=== PATIENT | male | born 1985 | race African-American/Black ===

== ENCOUNTER 2016-08-06 22:16 | Emergency (ER) | payer OTHER ==
[2016-08-06 22:24] VITALS: BP 158/72; PULSE 65; TEMP 98.6; BMI 40.4
[2016-08-06] MEDS ORDERED: BACITRACIN 30 GM TUBE TOPICAL OINTMENT TP ONE (23:06)
[2016-08-06] MEDS ORDERED: TETANUS AND DIPHTHERIA TOXOID 0.5 ML DISP.SYRIN IM ONE (23:07)
[2016-08-06] MEDS ORDERED: BACITRACIN 0.9 GM PACKET ONE (23:10)
[2016-08-06] MEDS ORDERED: BACITRACIN 30 GM TUBE TOPICAL OINTMENT ONE (23:19)
--- NOTE | 2016-08-06 23:28 | PDOC ---
History of Present Illness - General Chief Complaint: Laceration Stated Complaint: LACERATION TO HEAD Time Seen by Provider: 08/06/16 22:34 History Source: Patient Exam Limitations: No Limitations - History of Present Illness Initial Comments: 08/06/16 23:23 31yo Male patient presents to ED c/o laceration to scalp. Patient states he was shopping in [employer] when incident occurred. Patient was walking down isle where metal shelf was "sticking out," which he did not see and banged his head causing laceration to right scalp. Reports tetanus not up to date. Denies any other complaints at this time. Timing/Duration: reports: just prior to arrival Severity: Yes: mild Location: reports: scalp Respiratory Risk Factors: denies: no cause identified, exposure to illness, exposure to allergen, foods, insect bite, insect sting, medications, pollen, soaps, other Modifying Factors: worse with: antihistamine, calamine lotion, prednisone, scratching, topical steriods, other Associated Symptoms: denies: denies symptoms, blisters, change in skin texture, edema, fever, flushing, headache, hives, jaundice, malaise, nasal congestion, numbness, pallor, paresthesia, petechiae, rash, sore throat, swelling/mass/lumps , tingling, other Past History - Travel Traveled outside of the country in the last 30 days: No Close contact w/someone who was outside of country & ill: No - Past Medical History Allergies/Adverse Reactions: Allergies Allergy/AdvReac Type Severity Reaction Status Date / Time No Known Allergies Allergy Verified 08/06/16 22:18 Asthma: Yes - Immunization History Immunization Up to Date: Yes - Psycho/Social/Smoking Cessation Hx Suicidal Ideation: No Smoking History: Never smoked Information on smoking cessation initiated: No Hx Alcohol Use: No Drug/Substance Use Hx: No Substance Use Type: None Review of Systems - Review of Systems Able to Perform ROS?: Yes Is the patient limited Filipino proficient: No Constitutional: No: Chills, Fever Respiratory: No: Cough, Orthopnea, Shortness of Breath, Stridor, Wheezing Cardiac (ROS): No: Chest Pain, Edema, Lightheadedness, Palpitations, Syncope, Chest Tightness ABD/GI: No: Diarrhea, Nausea, Vomiting Integumentary: Yes: Other (Laceration to Scalp) All Other Systems: Reviewed and Negative *Physical Exam - Vital Signs Last Vital Signs Temp Pulse Resp BP Pulse Ox 98.6 F 65 20 158/72 99 08/06/16 22:18 08/06/16 22:18 08/06/16 22:18 08/06/16 22:18 08/06/16 22:18 - Physical Exam General Appearance: Yes: Nourished, Appropriately Dressed. No: Apparent Distress, Mild Distress, Moderate Distress, Severe Distress HEENT: positive: EOMI, JAYDA, Normal ENT Inspection, Normal Voice, Symmetrical, TMs Normal, Pharynx Normal. negative: Pharyngeal Erythema, Tonsillar Exudate, Tonsillar Erythema, TM Bulging, TM Dull, TM Erythema Neck: positive: Trachea midline, Normal Thyroid, Supple. negative: Stridor, Lymphadenopathy (R), Lymphadenopathy (L) Respiratory/Chest: positive: Lungs Clear, Normal Breath Sounds. negative: Respiratory Distress, Accessory Muscle Use, Labored Respiration Cardiovascular: positive: Regular Rhythm, Regular Rate. negative: Edema, JVD Musculoskeletal: positive: Normal Inspection. negative: CVA Tenderness Extremity: positive: Normal Capillary Refill, Normal Inspection, Normal Range of Motion. negative: Swelling, Erythema, Inflammation Integumentary: positive: Normal Color, Dry, Warm, Other (Superficial 2cm Laceration to right scalp. Bleeding controlled.) Neurologic: positive: epic willow analyst II-XII NML intact, Fully Oriented, Alert, Normal Mood/ Affect, Normal Response, Motor Strength 5/5 ED Treatment Course - Medications Given in the ED: ED Medications Discontinued Medications Generic Name Dose Route Start Last Admin Trade Name Javierq PRN Reason Stop Dose Admin Bacitracin 1 applic 08/06/16 23:06 08/06/16 23:14 Bacitracin - TP 08/06/16 23:07 1 applic ONCE ONE Administration Tetanus/Diphtheria Toxoids Adsorbed 0.5 ml 08/06/16 23:07 08/06/16 23:13 Decavac - IM 08/06/16 23:08 0.5 ml .ONCE ONE Administration *DC/Admit/Observation/Transfer Diagnosis at time of Disposition: Laceration of skin of scalp Qualifiers: Encounter type: initial encounter Qualified Code(s): S01.01XA - Laceration without foreign body of scalp, initial encounter - Discharge Dispostion Disposition: HOME Condition at time of disposition: Stable Admit: No - Patient Instructions Printed Discharge Instructions: DI for Closed Head Injury Additional Instructions: FOLLOW UP WITH YOUR DOCTOR NEEDED. CONTINUE TO APPLY BACITRACIN TO SCALP TWICE DAILY AFTER WASHING WITH SOAP AND WATER. RETURN IF ANY CONCERN FOR FURTHER EVALUATION. Print Language: INDONESIAN
== END 2016-08-06 23:36 | disposition home or self-care (01) ==
LOC: JER 22:16
PROC: 3E0234Z Introduction of Serum, Toxoid and Vaccine into Muscle, Percutaneous Approach (ICD-10-PCS; principal; 2016-08-06)
DX: S01.01XA Laceration without foreign body of scalp, initial encounter (principal); W22.8XXA Striking against or struck by other objects, initial encounter; Y93.89 Activity, other specified; Y92.512 Supermarket, store or market as the place of occurrence of the external cause; Y99.8 Other external cause status
CPT/HCPCS: 99281-25

== ENCOUNTER 2017-12-25 12:42 | Emergency (ER) | payer SELFPAY ==
[2017-12-25 13:05] VITALS: BMI 39.7
--- NOTE | 2017-12-25 14:46 | PDOC ---
History of Present Illness - General Chief Complaint: Pain Stated Complaint: CHEST PAIN, HEADACHE - History of Present Illness Initial Comments: Dangelo Pedro is a 32yo man with a PMH of asthma and migraines who presents with pleuritic left chest vs LUQ pain that started overnight. He reports that he first noticed the pain about 1:30am last night. He initially assumed that the pain was a muscle ache and went to sleep. However, this morning the pain had not improved at all. It is a sharp, non-radiating pain about 7/10 in intensity. The pain worsens with movement or breathing. Mr Pedro denies any associated nausea, vomiting, SOB, diaphoresis, or fever/ chills. He does not remember any particular injury but does report reaching up for files on a high shelf at work yesterday. He has not had any unusual lifting or new exercise program. He notes that the felt his heart racing initially, but he does admit to drinking espresso twice yesterday in addition to coffee at 10pm. He attributed feeling his heart race to drinking more caffeine yesterday than normal. That symptom had resolved by the time he woke this morning. Mr Pedro has otherwise been healthy lately and does not complain of any other symptoms. Past History - Past Medical History Allergies/Adverse Reactions: Allergies Allergy/AdvReac Type Severity Reaction Status Date / Time No Known Allergies Allergy Verified 12/25/17 13:05 Home Medications: Ambulatory Orders Acetaminophen/Caffeine/Butalb [Fioricet -] 1 tablet PO DAILY 12/25/17 Albuterol Sulfate Inhaler - [Ventolin Hfa Inhaler -] 1 - 2 inh PO PRN PRN Budesonide/Formeterol Fumarate [SYMBICORT 80/4.5mcg -] 1 puff IH PRN PRN Asthma: Yes COPD: No - Immunization History Immunization Up to Date: Yes - Suicide/Smoking/Psychosocial Hx Smoking History: Never smoked Hx Alcohol Use: No Drug/Substance Use Hx: No Substance Use Type: None Review of Systems - Review of Systems Comments:: General: No fevers, no chills, no weight or appetite change, no malaise HEENT: No changes in vision, no changes in hearing, no congestion, no sore throat CV: No chest pain, no palpitations, no LE edema Pulm: No unusual SOB, no cough, no wheezing. +h/o asthma GI: No nausea or vomiting, no change in bowel habits, no melena : No frequency, no urgency, no dysuria Musc: No back pain, no joint swelling, no recent injury Skin: No rash, no lesions, no erythema Endo: No excessive thirst, no heat/cold intolerance Heme: No unusual bruising or bleeding, no swollen glands Neuro: No syncope, no numbness/tingling, no focal weakness Vasc: No claudication Psych: No recent change in mood, no SI or HI *Physical Exam - Vital Signs Last Vital Signs Temp Pulse Resp BP Pulse Ox 99.4 F 76 18 137/73 100 12/25/17 13:02 12/25/17 13:02 12/25/17 13:02 12/25/17 13:02 12/25/17 13:02 - Physical Exam Comments: General: Comfortable, no acute distress HEENT: PERRL, EOMI, MMM, voice normal, normal neck ROM, no LAD Cards: RRR, no murmur appreciated Pulm: Comfortable on room air, clear to auscultation bilaterally. Very minimal TTP over lateral 11th and 12th left rib Abd: Soft, nontender, nondistended : No CVA tenderness Ext: Atraumatic. No LE edema. ROM intact. Strength 5/5 and equal bilaterally Vasc: Extremities WWP. Palpable radial and pedal pulses bilaterally Neuro: A&Ox3, CN grossly intact, normal speech, motor/sensory grossly intact and symmetric Psych: Mood appropriate to situation ED Treatment Course - LABORATORY CBC & Chemistry Diagram: 12/25/17 16:30 12/25/17 18:30 Medical Decision Making - Medical Decision Making 12/25/17 15:32 Dangelo Pedro is a 32yo with a history of asthma and migraines who presents to the ED with pleuritic pain and TTP over the left lower ribs since last night. He has no associated symptoms. - Very low risk of ACS. EKG was completed in triage, normal sinus. No indication to check troponin at this time - Given h/o asthma, may be difficulty to distingish respiratory infection from normal asthma symptoms. CXR ordered to evaluate for focal pathology - Most likely muscle pain vs costochondritis given pleuritic nature, TTP, and h/ o reaching to high shelves yesterday. Will give ibuprofen and methocarbamol for symptoms. 12/25/17 16:03 - On reassessment, now complaining of worsening chest/abd pain, 9/10 headache. The headache is more severe than his normal migraines - CBC, CMP, lipase, mag, phos ordered - Will give 1L normal saline and reglan in addition to previous ibuprofen and methocarbamol for headache. 12/25/17 18:27 - Reports pain somewhat improved following medications - CBC unremarkable. Remainder of labs hemolized, results unavailable. Given improvement in symptoms, normal EKG and CXR, normal CBC will not redraw chemistries. - Will discharge home if Mr Pedro agrees. Will discuss return precautions and follow up. *DC/Admit/Observation/Transfer Diagnosis at time of Disposition: Atypical chest pain - Discharge Dispostion Disposition: HOME Condition at time of disposition: Good Decision to Admit order: No - Referrals Referrals: Beatriz Noble MD [Primary Care Provider] - - Patient Instructions Printed Discharge Instructions: DI for Atypical Chest Pain Additional Instructions: Discharge Instructiosn: - You were seen in the ED for chest pain - You had an EKG, chest xray, and blood tests completed. There was nothing abnormal or concerning found - Your pain was most likely due to musculoskeletal pain. You were given an anti- inflammatory medication and muscle relaxant with improvement in your symptoms. - Continue to use ibuprofen (Motrin, Advil) or acetaminophen (Tylenol) as needed for pain. You can consider using heat or cold packs to help with your symptoms - Avoid strenuous activity until your pain improves, but continue gentle stretching and arm movements, Gradually increase these daily - Follow up with your primary physician within the next week to ensure that you are recovering appropriately - Seek immediate medical care if you have severe chest pain along with shortness of breath, sweating, nausea/vomiting or if you have these symptoms along with a fever to 101F that does not respond to medications such as tylenol or motrin at home. - Post Discharge Activity Forms/Work/School Notes: Back to Work
--- NOTE | 2017-12-25 15:18 | PDOC ---
Attending Attestation - [facility] HPI: 12/25/17 16:43 The patient is a 32-year-old male with a past medical history of asthma and migraine presents to the emergency department with chest pain. The patient reports around 1:30 am, an acute onset of L sided chest pain presented, localized along the intercostal space of the ribs. The patient reports he went back to sleep, but today morning patient reports having difficulty ambulating out of bed. The patient reports the pain is pleuritic in character, thats aggravated by coughing or laughing. The patient reports associated symptoms of heart racing, muscle twitching, and nausea. The patient reports a history of a headache, that was intensified today, 9/10 in severity. The patient doesnt recall doing any heavy lifting, reports reaching up to bring down a file. The patient states he went to PCP, who sent him to the ER. Denies vomiting, diarrhea , constipation, fever, chills, cough or shortness of breath. Allergies: NKA Social history: None reported Surgical history: None reported PCP: Beatriz Zacarias MD - Physicial Exam PE: 12/25/17 16:13 GENERAL: The patient is in no acute distress. HEAD: Normal with no signs of trauma. EYES: PERRLA, EOMI, sclera anicteric, conjunctiva clear. ENT: Ears normal, nares patent, oropharynx clear without exudates. Moist mucous membranes. NECK: Normal range of motion, supple without lymphadenopathy, JVD, or masses. LUNGS: Breath sounds equal, clear to auscultation bilaterally. No wheezes, and no crackles. HEART:Regular rate and rhythm, normal S1 and S2 without murmur, rub or gallop. ABDOMEN: Soft, nontender, normoactive bowel sounds. No guarding, no rebound. No masses palpable. EXTREMITIES: Normal range of motion, no edema. No clubbing or cyanosis. No erythema, or tenderness. NEUROLOGICAL: Cranial nerves II through XII grossly intact. Normal speech. No focal neurological deficits. MUSCULOSKELETAL: (+) Tenderness to the L. lower ribs. Rest of the musculoskeletal: Back non-tender to palpation, no CVA tenderness SKIN: Warm, Dry, normal turgor, no rashes or lesions noted. - Medical Decision Making 12/25/17 16:13 Documentation prepared by Norma Flannery, acting as medical case manager for Sana Tejada MD <Norma Flannery - Last Filed: 12/25/17 16:43> - Resident Resident Name: Catherine Washington - ED Attending Attestation I have performed the following: I have examined & evaluated the patient, The case was reviewed & discussed with the resident, I agree w/resident's findings & plan, Exceptions are as noted - Medical Decision Making 32 yo M presenting with a complaint of left sided chest pain which worsens with movement, deep breath , palpation of the area No rash No cardiac risk factors No recent travel Low risk wells, Perc neg Labs pending prior to sign out CXR does not demonstrate Pneumothorax or pleural effusion Pt given pain medications with improvement in symptoms but not complete resolution Pt signed out to Dr Fox, pending labs Clinical Impression: likely musculoskeletal chest pain, initial presentation <Sana Tejada - Last Filed: 12/28/17 08:51>
[2017-12-25] MEDS ORDERED: METHOCARBAMOL 500 MG TABLET PO ONE (15:22)
[2017-12-25] MEDS ORDERED: IBUPROFEN 400 MG TABLET (FP) PO ONE ×2 (15:22→16:37)
[2017-12-25] MEDS ORDERED: SODIUM CHLORIDE 0.9% 500 ML INFUS.BAG IV ONE (16:02)
[2017-12-25] MEDS ORDERED: METOCLOPRAMIDE HCL INJECTION 10 MG/2 ML VIAL IVPUSH ONE (16:12)
[2017-12-25] MEDS ORDERED: METHOCARBAMOL 500 MG TABLET ONE (16:36)
[2017-12-25] MEDS ORDERED: METOCLOPRAMIDE HCL INJECTION 10 MG/2 ML VIAL ONE (16:36)
[2017-12-25 16:53] LABS: HEMOGLOBIN 14.4 GM/dL (11.7-16.9); MCH 28.6 pg (25.7-33.7); MCHC 32.8 g/dl (32.0-35.9); MEAN CELL VOLUME 87.1 fl (80-96); MEAN PLT VOLUME 7.1 fl (7.5-11.1); PLATELET COUNT 474 K/MM3 (134-434); RBC 5.05 M/mm3 (4.00-5.60); RDW 13.5 % (11.9-15.9); WHITE BLOOD COUNT 8.9 K/mm3 (4.0-10.0)
[2017-12-25 19:19] LABS: ANION GAP 10 MMOL/L (8-16); BLOOD UREA NITROGEN 7 mg/dL (7-18); CALCIUM 7.7 mg/dL (8.5-10.1); CHLORIDE 113 mmol/L (98-107); CO2 23 mmol/L (21-32); GLUCOSE,RANDOM 83 mg/dL (74-106); POTASSIUM 3.6 mmol/L (3.5-5.1); SGOT/AST 10 U/L (15-37); SODIUM 146 mmol/L (136-145)
[2017-12-25 19:26] LABS: ALK PHOS 63 U/L (45-117); BILIRUBIN,TOTAL 0.6 mg/dL (0.2-1.0); CREATININE 0.8 mg/dL (0.7-1.3); SGPT/ALT 27 U/L (12-78); TOT PROT 5.9 g/dl (6.4-8.2)
[2017-12-25 20:59] VITALS: BP 133/82; PULSE 74; TEMP 97.9
--- NOTE | 2017-12-26 13:46 | EKG ---
Test Reason : Blood Pressure : / mmHG Vent. Rate : 067 BPM Atrial Rate : 067 BPM P-R Int : 160 ms QRS Dur : 084 ms QT Int : 382 ms P-R-T Axes : 039 037 041 degrees QTc Int : 403 ms NORMAL SINUS RHYTHM NORMAL ECG WHEN COMPARED WITH ECG OF 11-AUG-2009 23:41, NO SIGNIFICANT CHANGE WAS FOUND Confirmed by PABLITO HOLLOWAY MD ([id number]) on 12/26/2017 1:46:12 PM Referred By: Confirmed By:PABLITO HOLLOWAY MD
== END 2017-12-25 20:59 | disposition home or self-care (01) ==
LOC: JER 12:42
PROC: 3E033GC Introduction of Other Therapeutic Substance into Peripheral Vein, Percutaneous Approach (ICD-10-PCS; principal; 2017-12-25)
DX: R07.89 Other chest pain (principal); G43.909 Migraine, unspecified, not intractable, without status migrainosus; J45.909 Unspecified asthma, uncomplicated
CPT/HCPCS: 36415; 71046-TC-FY; 80053; 82550; 82553; 84484; 85027; 93005; 93010; 99284-25